=== PATIENT | female | born 1940 | race Caucasian/White ===

== ENCOUNTER 2024-01-25 08:55 | Outpatient (CLI) | payer MEDICARE | END 2024-01-25 08:56 | disposition home or self-care (01) | LOC: CSHWCC 08:55 | PROVIDERS: ATTEND Nurse Practitioner Family | DX: I87.311 Chronic venous hypertension (idiopathic) with ulcer of right lower extremity (principal); L97.212 Non-pressure chronic ulcer of right calf with fat layer exposed; L59.8 Other specified disorders of the skin and subcutaneous tissue related to radiation | CPT/HCPCS: 11042 ==

== ENCOUNTER 2024-02-01 10:55 | Outpatient (CLI) | payer MEDICARE | END 2024-02-01 10:56 | disposition home or self-care (01) | LOC: CSHWCC 10:55 | PROVIDERS: ATTEND Nurse Practitioner Family | DX: I87.311 Chronic venous hypertension (idiopathic) with ulcer of right lower extremity (principal); L97.212 Non-pressure chronic ulcer of right calf with fat layer exposed; L59.8 Other specified disorders of the skin and subcutaneous tissue related to radiation | CPT/HCPCS: 11042; 87070; 87205; G0463; 99213 ==

== ENCOUNTER 2024-02-08 09:48 | Outpatient (CLI) | payer MEDICARE | END 2024-02-08 09:49 | disposition home or self-care (01) | LOC: CSHWCC 09:48 | PROVIDERS: ATTEND Nurse Practitioner Family | DX: I87.311 Chronic venous hypertension (idiopathic) with ulcer of right lower extremity (principal); L97.212 Non-pressure chronic ulcer of right calf with fat layer exposed; L59.8 Other specified disorders of the skin and subcutaneous tissue related to radiation | CPT/HCPCS: 11042 ==

== ENCOUNTER 2024-02-15 09:02 | Outpatient (CLI) | payer MEDICARE | END 2024-02-15 09:03 | disposition home or self-care (01) | LOC: CSHWCC 09:02 | PROVIDERS: ATTEND Nurse Practitioner Family | DX: I87.311 Chronic venous hypertension (idiopathic) with ulcer of right lower extremity (principal); L97.212 Non-pressure chronic ulcer of right calf with fat layer exposed; L59.8 Other specified disorders of the skin and subcutaneous tissue related to radiation | CPT/HCPCS: 11042 ==

== ENCOUNTER 2024-02-22 10:02 | Outpatient (CLI) | payer MEDICARE | END 2024-02-22 10:03 | disposition home or self-care (01) | LOC: CSHWCC 10:02 | PROVIDERS: ATTEND Nurse Practitioner Family | DX: I87.311 Chronic venous hypertension (idiopathic) with ulcer of right lower extremity (principal); L97.212 Non-pressure chronic ulcer of right calf with fat layer exposed; L59.8 Other specified disorders of the skin and subcutaneous tissue related to radiation | CPT/HCPCS: 11042 ==

== ENCOUNTER 2024-02-29 08:33 | Outpatient (CLI) | payer MEDICARE | END 2024-02-29 08:34 | disposition home or self-care (01) | LOC: CSHWCC 08:33 | PROVIDERS: ATTEND Nurse Practitioner Family | DX: I87.311 Chronic venous hypertension (idiopathic) with ulcer of right lower extremity (principal); L97.212 Non-pressure chronic ulcer of right calf with fat layer exposed; L59.8 Other specified disorders of the skin and subcutaneous tissue related to radiation | CPT/HCPCS: 11042; G0463; 99212 ==

== ENCOUNTER 2024-03-07 08:53 | Outpatient (CLI) | payer MEDICARE | END 2024-03-07 08:54 | disposition home or self-care (01) | LOC: CSHWCC 08:53 | PROVIDERS: ATTEND Nurse Practitioner Family | DX: I87.311 Chronic venous hypertension (idiopathic) with ulcer of right lower extremity (principal); L97.212 Non-pressure chronic ulcer of right calf with fat layer exposed; L59.8 Other specified disorders of the skin and subcutaneous tissue related to radiation | CPT/HCPCS: 11042 ==

== ENCOUNTER 2024-03-14 08:52 | Outpatient (CLI) | payer MEDICARE | END 2024-03-14 08:53 | disposition home or self-care (01) | LOC: CSHWCC 08:52 | PROVIDERS: ATTEND Nurse Practitioner Family | DX: I87.311 Chronic venous hypertension (idiopathic) with ulcer of right lower extremity (principal); L97.212 Non-pressure chronic ulcer of right calf with fat layer exposed; L59.8 Other specified disorders of the skin and subcutaneous tissue related to radiation | CPT/HCPCS: 11042 ==

== ENCOUNTER 2024-03-21 09:46 | Outpatient (CLI) | payer MEDICARE | END 2024-03-21 09:47 | disposition home or self-care (01) | LOC: CSHWCC 09:46 | PROVIDERS: ATTEND Nurse Practitioner Family | DX: I87.311 Chronic venous hypertension (idiopathic) with ulcer of right lower extremity (principal); L97.212 Non-pressure chronic ulcer of right calf with fat layer exposed; L59.8 Other specified disorders of the skin and subcutaneous tissue related to radiation | CPT/HCPCS: 11042; 99212; G0463 ==

== ENCOUNTER 2024-03-28 09:19 | Outpatient (CLI) | payer MEDICARE | END 2024-03-28 09:20 | disposition home or self-care (01) | LOC: CSHWCC 09:19 | PROVIDERS: ATTEND Nurse Practitioner Family | DX: I87.311 Chronic venous hypertension (idiopathic) with ulcer of right lower extremity (principal); L97.212 Non-pressure chronic ulcer of right calf with fat layer exposed; L59.8 Other specified disorders of the skin and subcutaneous tissue related to radiation | CPT/HCPCS: 11042 ==

== ENCOUNTER 2024-04-12 14:39 | Outpatient (CLI) | payer MEDICARE | END 2024-04-12 14:40 | disposition home or self-care (01) | LOC: CSHWCC 14:39 | PROVIDERS: ATTEND Nurse Practitioner Family | DX: I87.311 Chronic venous hypertension (idiopathic) with ulcer of right lower extremity (principal); L97.212 Non-pressure chronic ulcer of right calf with fat layer exposed; L59.8 Other specified disorders of the skin and subcutaneous tissue related to radiation | CPT/HCPCS: 97597; G0463; 99213 ==

== ENCOUNTER 2024-04-18 11:33 | Outpatient (CLI) | payer MEDICARE | END 2024-04-18 11:34 | disposition home or self-care (01) | LOC: CSHWCC 11:33 | PROVIDERS: ATTEND Nurse Practitioner Family | DX: I87.311 Chronic venous hypertension (idiopathic) with ulcer of right lower extremity (principal); L97.212 Non-pressure chronic ulcer of right calf with fat layer exposed; L59.8 Other specified disorders of the skin and subcutaneous tissue related to radiation | CPT/HCPCS: 11042 ==

== ENCOUNTER 2024-05-02 09:29 | Outpatient (CLI) | payer MEDICARE | END 2024-05-02 09:30 | disposition home or self-care (01) | LOC: CSHWCC 09:29 | PROVIDERS: ATTEND Nurse Practitioner Family | DX: I87.311 Chronic venous hypertension (idiopathic) with ulcer of right lower extremity (principal); L97.212 Non-pressure chronic ulcer of right calf with fat layer exposed; L59.8 Other specified disorders of the skin and subcutaneous tissue related to radiation | CPT/HCPCS: 11042 ==

== ENCOUNTER 2024-05-09 08:29 | Outpatient (CLI) | payer MEDICARE | END 2024-05-09 08:30 | disposition home or self-care (01) | LOC: CSHWCC 08:29 | PROVIDERS: ATTEND Nurse Practitioner Family | DX: I87.311 Chronic venous hypertension (idiopathic) with ulcer of right lower extremity (principal); L97.212 Non-pressure chronic ulcer of right calf with fat layer exposed; L59.8 Other specified disorders of the skin and subcutaneous tissue related to radiation | CPT/HCPCS: 11042; 87070; 87205; G0463; 87077; 87186; 99213 ==

== ENCOUNTER 2024-05-17 09:09 | Outpatient (CLI) | payer MEDICARE | END 2024-05-17 09:10 | disposition home or self-care (01) | LOC: CSHWCC 09:09 | PROVIDERS: ATTEND Nurse Practitioner Family | DX: I87.311 Chronic venous hypertension (idiopathic) with ulcer of right lower extremity (principal); L97.212 Non-pressure chronic ulcer of right calf with fat layer exposed; L59.8 Other specified disorders of the skin and subcutaneous tissue related to radiation | CPT/HCPCS: 11042; 99212; G0463 ==

== ENCOUNTER 2024-05-24 15:06 | Outpatient (CLI) | payer MEDICARE | END 2024-05-24 15:07 | disposition home or self-care (01) | LOC: CSHWCC 15:06 | PROVIDERS: ATTEND Nurse Practitioner Family | DX: I87.311 Chronic venous hypertension (idiopathic) with ulcer of right lower extremity (principal); L97.212 Non-pressure chronic ulcer of right calf with fat layer exposed; L59.8 Other specified disorders of the skin and subcutaneous tissue related to radiation | CPT/HCPCS: 11042 ==

== ENCOUNTER 2024-06-13 08:38 | Outpatient (CLI) | payer MEDICARE | END 2024-06-13 08:39 | disposition home or self-care (01) | LOC: CSHWCC 08:38 | PROVIDERS: ATTEND Nurse Practitioner Family | DX: I87.311 Chronic venous hypertension (idiopathic) with ulcer of right lower extremity (principal); L97.212 Non-pressure chronic ulcer of right calf with fat layer exposed; L59.8 Other specified disorders of the skin and subcutaneous tissue related to radiation | CPT/HCPCS: 99213; G0463 ==